=== PATIENT | male | born 1995 | race Two or more races ===

== ENCOUNTER 2019-03-04 15:44 | Emergency (ER) | payer BC, OTHER ==
[~2019-03-04] VITALS: Ht 170.2 cm; Wt 99.8 kg
[2019-03-04 18:45] VITALS: BP 127/78
[2019-03-04] MEDS ORDERED: LIDOCAINE 1% HCL (LOCAL ANESTH.) INJ 20ML MDV IJ ONE (19:15)
[2019-03-04] MEDS ORDERED: BACITRACIN TOP OINT 1 UD PKG TOP ONE (19:15)
== END 2019-03-04 20:45 | disposition home or self-care (01) ==
LOC: ER 15:49
DX: S61.412A Laceration without foreign body of left hand, initial encounter (principal); W26.9XXA Contact with unspecified sharp object(s), initial encounter; Y93.89 Activity, other specified; Y92.89 Other specified places as the place of occurrence of the external cause; Y99.8 Other external cause status
CPT/HCPCS: 12001; 99283; J2001